=== PATIENT | female | born 1950 | race Caucasian/White ===

== ENCOUNTER → 2020-05-14 | Outpatient (REF) | payer MEDICARE ==
[~2020-05-14] MED LIST: ASPI81TA86 PO; CRES5TAB PO; DRIS50003 PO; METO1TAB7 PO; SIMV20TA22 PO
== END ==
LOC: M LAB REF 07:29
PROVIDERS: ATTEND Internal Medicine Endocrinology, Diabetes & Metabolism
DX: E04.1 Nontoxic single thyroid nodule (principal)

== ENCOUNTER 2024-10-05 06:03 | Day surgery (SDC) | payer MEDICARE ==
[~2024-10-05] VITALS: Ht 154.9 cm; Wt 64.0 kg
[~2024-10-05 06:03] MED LIST changes: +CALTTAB6 PO; +METO1TAB32 PO; +PREDOPD OU
[2024-10-05] MEDS: LIDOCAINE 3.5 % 1ML OPHTH TOPICAL GEL OU ONE (06:34)
[2024-10-05] MEDS ORDERED: MIDAZOLAM INJ 2MG/2ML VIAL As Ordered ONE (07:05)
[2024-10-05] MEDS ORDERED: fentaNYL 100 MCG/2 ML INJECTION As Ordered ONE (07:06)
[2024-10-05] MEDS: TOBRAMYCIN 80MG/2ML VIAL As Ordered ONE (08:00)
[2024-10-05] MEDS: TOBRADEX OPHTH SUSP 2.5 ML As Ordered ONE (08:00)
[2024-10-05] MEDS: TOBRADEX OPHTH OINT 3.5 GM As Ordered ONE (08:04)
[2024-10-05] MEDS: mitoMYcin 0.2 MG/VIAL KIT FOR OPHTHALMIC USE As Ordered ONE (08:04)
[2024-10-05] MEDS: BSS IRRIG/VANCO(10MG)/TOBRA(5MG)/EPINEPH(1:1000-0.5CC)500ML BAG-ORONLY As Ordered ONE (08:04)
[2024-10-05] MEDS: LIDOCAINE 1% SDV 5ML VIAL As Ordered ONE (08:04)
[2024-10-05] MEDS: LIDOCAINE 2% W/EPINEPHRINE 20ML VIAL **PRES FREE As Ordered ONE (08:04)
[2024-10-05 08:21] VITALS: BP 144/72; TEMP 97.4; O2SAT 96
== END 2024-10-05 08:29 | disposition home or self-care (01) ==
LOC: M SDC 06:03
PROVIDERS: ATTEND Ophthalmology
DX: H11.002 Unspecified pterygium of left eye (principal); I49.3 Ventricular premature depolarization; I34.89 Other nonrheumatic mitral valve disorders; E78.5 Hyperlipidemia, unspecified; E66.3 Overweight; Z79.899 Other long term (current) drug therapy; B02.29 Other postherpetic nervous system involvement; Z87.891 Personal history of nicotine dependence; Z90.49 Acquired absence of other specified parts of digestive tract; Z90.89 Acquired absence of other organs
CPT/HCPCS: 65426; 88304; J2250; J3010; J7315; Q4205